=== PATIENT | female | born 2000 | race Hispanic/Latino ===

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

== ENCOUNTER 2021-05-29 11:27 | Emergency (ER) | payer OTHER ==
[~2021-05-29] VITALS: Ht 149.9 cm; Wt 70.3 kg
[~2021-05-29 11:27] MED LIST: IRON240T PO; PRENTAB9 PO; VITA500C24 PO
[2021-05-29 11:28] VITALS: BP 140/73
== END 2021-05-29 12:32 | disposition home or self-care (01) ==
LOC: M ED 11:27
DX: H65.01 Acute serous otitis media, right ear (principal); H92.01 Otalgia, right ear

== ENCOUNTER 2021-07-23 20:15 | Emergency (ER) | payer OTHER ==
[~2021-07-23] VITALS: Ht 152.4 cm; Wt 70.1 kg
[2021-07-23] MEDS ORDERED: birth control patch (20:22)
[2021-07-23 22:05] LABS: BASO # 0.1 10^3/uL (0.0-0.2); BASO % 0.4 % (0.0-1.0); EOS # 0.5 10^3/uL (0.0-0.5); EOS % 4.5 % (0.0-3.0); HEMATOCRIT 38.5 % (36.0-47.0); HEMOGLOBIN 12.5 g/dl (12.0-15.5); LYMPH # 2.9 10^3/uL (1.5-5.0); LYMPH % 24.7 % (24.0-44.0); MEAN CORPUSCULAR HEMOGLOBIN 25.3 pg (27.0-33.0); MEAN CORPUSCULAR HGB CONC 32.5 g/dl (32.0-36.5); MEAN CORPUSCULAR VOLUME 77.9 fl (80.0-96.0); MONO # 0.7 10^3/uL (0.0-0.8); MONO % 6.1 % (2.0-8.0); NEUTROPHILS # 7.4 10^3/uL (1.5-8.5); PLATELET COUNT, AUTOMATED 393 10^3/uL (150-450); RED BLOOD COUNT 4.94 10^6/uL (4.00-5.40); WHITE BLOOD COUNT 11.5 10^3/uL (4.0-10.0)
[2021-07-23] MEDS: GASTROGRAFIN SOLUTION 30ML PO SCH ×2 (22:15→22:27)
[2021-07-23 22:27] LABS: ALBUMIN 3.4 GM/DL (3.2-5.2); ALT/SGPT 32 U/L (12-78); BILIRUBIN,DIRECT < 0.1 MG/DL (0.0-0.2); BILIRUBIN,TOTAL 0.2 MG/DL (0.2-1.0); BLOOD UREA NITROGEN 14 MG/DL (7-18); CALCIUM LEVEL 8.8 MG/DL (8.5-10.1); CARBON DIOXIDE LEVEL 27 MEQ/L (21-32); CHLORIDE LEVEL 106 MEQ/L (98-107); CREATININE FOR GFR 0.45 MG/DL (0.55-1.30); GLUCOSE, FASTING 100 MG/DL (70-100); LIPASE 184 U/L (73-393); POTASSIUM SERUM 4.2 MEQ/L (3.5-5.1); SODIUM LEVEL 140 MEQ/L (136-145); TOTAL PROTEIN 7.1 GM/DL (6.4-8.2)
[2021-07-23] MEDS ORDERED: ISOVUE-370 76% 100ML VIAL As Ordered ONE (22:34)
--- NOTE | 2021-07-24 00:51 | REPVR ---
PROCEDURE INFORMATION: Exam: CT Abdomen And Pelvis With Contrast Exam date and time: 07/23/2021 10:42 PM Age: 21 years old Clinical indication: Other: Rectal bleeding; Additional info: Eval for uc TECHNIQUE: Imaging protocol: Computed tomography of the abdomen and pelvis with contrast. Radiation optimization: All CT scans at this facility use at least one of these dose optimization techniques: automated exposure control; mA and/or kV adjustment per patient size (includes targeted exams where dose is matched to clinical indication); or iterative reconstruction. Contrast material: ISOVUE 370; Contrast volume: 100 ml; Contrast route: INTRAVENOUS (IV); COMPARISON: No relevant prior studies available. FINDINGS: Mediastinal space: Small hiatal hernia. Liver: Normal. No mass. Gallbladder and bile ducts: Normal. No calcified stones. No ductal dilation. Pancreas: Normal. No ductal dilation. Spleen: Normal. No splenomegaly. Adrenal glands: Normal. No mass. Kidneys and ureters: Normal. No hydronephrosis. Stomach and bowel: Unremarkable. No obstruction. No mucosal thickening. Appendix: No evidence of appendicitis. Intraperitoneal space: Unremarkable. No free air. No significant fluid collection. Vasculature: Unremarkable. No abdominal aortic aneurysm. Lymph nodes: Unremarkable. No enlarged lymph nodes. Urinary bladder: Bladder distension. Reproductive: Unremarkable as visualized. Bones/joints: Unremarkable. No acute fracture. Soft tissues: Small fat protruding umbilical hernia. IMPRESSION: 1. Small hiatal hernia. 2. Unremarkable bowel. Electronically signed by: Con Velasco On 07/24/2021 00:50:42 AM
[2021-07-24 01:17] VITALS: BP 119/63
== END 2021-07-24 02:16 | disposition home or self-care (01) ==
LOC: M ED 20:15
DX: K62.5 Hemorrhage of anus and rectum (principal); K44.9 Diaphragmatic hernia without obstruction or gangrene
CPT/HCPCS: 36415; 74177; 80048; 80076; 83605; 83690; 84702; 85025; 99284; Q9963; Q9967

== ENCOUNTER → 2021-09-26 | Outpatient (CLI) | payer OTHER ==
[~2021-09-26] MED LIST changes: +birth control patch
--- NOTE | 2021-09-27 08:57 | REP ---
INDICATION: THYROTOXICOSIS. COMPARISON: None. TECHNIQUE/RADIOTRACER AND DOSE: AFTER THE ORAL ADMINISTRATION OF 344 UCI OF RADIO IODIDE 123 A THYROID SCAN AND UPTAKE WAS PERFORMED FINDINGS: There is symmetric distribution of the radiotracer throughout the thyroid gland. The 24 hour uptake calculation is 60.97% IMPRESSION: Uptake calculation consistent with hyperthyroidism. <Electronically signed by Burak Odell > 09/27/21 0821
== END ==
LOC: M RAD 09-12 13:02
PROVIDERS: ATTEND Nurse Practitioner Family
DX: E05.00 Thyrotoxicosis with diffuse goiter without thyrotoxic crisis or storm (principal)
CPT/HCPCS: 78012; A9516

== ENCOUNTER 2021-10-29 08:35 | Emergency (ER) | payer OTHER ==
[~2021-10-29] VITALS: Ht 149.9 cm; Wt 68.8 kg
[2021-10-29] MEDS ORDERED: IBUP200C25 PO (08:48)
[2021-10-29] MEDS ORDERED: AMOX500C PO (08:48)
[2021-10-29] MEDS ORDERED: ACETAMINOPHEN TAB 650MG DOSE (2X325MG) PO ONE (09:00)
[2021-10-29] MEDS ORDERED: NS 1,000 ML IV ONE (09:00)
[2021-10-29 09:52] LABS: BASO % 0.4 % (0.0-1.0); EOS # 0.1 10^3/uL (0.0-0.5); EOS % 1.9 % (0.0-3.0); HEMATOCRIT 40.1 % (36.0-47.0); HEMOGLOBIN 13.1 g/dl (12.0-15.5); LYMPH # 0.7 10^3/uL (1.5-5.0); LYMPH % 9.9 % (24.0-44.0); MEAN CORPUSCULAR HGB CONC 32.7 g/dl (32.0-36.5); MEAN CORPUSCULAR VOLUME 76.7 fl (80.0-96.0); MONO # 0.4 10^3/uL (0.0-0.8); MONO % 5.7 % (2.0-8.0); NEUTROPHILS # 5.5 10^3/uL (1.5-8.5); NEUTROPHILS % 81.7 % (36.0-66.0); PLATELET COUNT, AUTOMATED 290 10^3/uL (150-450); RED BLOOD COUNT 5.23 10^6/uL (4.00-5.40); WHITE BLOOD COUNT 6.7 10^3/uL (4.0-10.0)
[2021-10-29 10:39] LABS: HCG, SERUM QUALITATIVE NEGATIVE (NEGATIVE)
[2021-10-29 10:58] LABS: ALBUMIN 3.8 GM/DL (3.2-5.2); ALT/SGPT 26 U/L (12-78); BILIRUBIN,TOTAL 0.3 MG/DL (0.2-1.0); BLOOD UREA NITROGEN 13 MG/DL (7-18); CALCIUM LEVEL 9.2 MG/DL (8.5-10.1); CARBON DIOXIDE LEVEL 26 MEQ/L (21-32); CHLORIDE LEVEL 105 MEQ/L (98-107); FREE T4 2.32 NG/DL (0.78-1.33); GLUCOSE, FASTING 89 MG/DL (70-100); POTASSIUM SERUM 3.9 MEQ/L (3.5-5.1); SODIUM LEVEL 137 MEQ/L (136-145); THYROID STIMULATING HORMONE < 0.005 uIU/ML (0.463-3.98); TOTAL PROTEIN 7.3 GM/DL (6.4-8.2)
[2021-10-29] MEDS ORDERED: IBUPROFEN 600MG TAB PO ONE (11:05)
[2021-10-29] MEDS ORDERED: NS 1,000 ML IV SCH (11:15)
[2021-10-29] MEDS ORDERED: ONDANSETRON 4 MG ORAL DISINTEGRATING TAB PO ONE (13:25)
[2021-10-29] MEDS ORDERED: ZOFR4TAB16 PO (14:26)
[2021-10-29 14:27] VITALS: BP 119/75
== END 2021-10-29 14:30 | disposition home or self-care (01) ==
LOC: M ED 08:35
DX: U07.1 COVID-19 (principal); R11.0 Nausea
CPT/HCPCS: 36415; 71046; 80053; 81001; 83605; 84439; 84443; 84703; 85025; 87040; 93041; 94760; 96360; 96361; 99285; Q0162

== ENCOUNTER → 2021-11-06 | Outpatient (CLI) | payer OTHER ==
[~2021-11-06] MED LIST changes: +AMOX500C PO; +IBUP200C25 PO; +ZOFR4TAB16 PO
[2021-11-06 16:56] LABS: HCG, SERUM QUALITATIVE NEGATIVE (NEGATIVE)
== END ==
LOC: M LAB 13:21
PROVIDERS: ATTEND Nurse Practitioner Family
DX: E05.00 Thyrotoxicosis with diffuse goiter without thyrotoxic crisis or storm (principal)

== ENCOUNTER → 2021-11-07 | Outpatient (CLI) | payer OTHER | LOC: M RAD 14:48 | PROVIDERS: ATTEND Internal Medicine Endocrinology, Diabetes & Metabolism | DX: E05.00 Thyrotoxicosis with diffuse goiter without thyrotoxic crisis or storm (principal) | CPT/HCPCS: 79005; A9517 ==